=== PATIENT | male | born 1990 | race Caucasian/White ===

== ENCOUNTER 2024-07-15 01:01 | Emergency (ER) | payer OTHER ==
[~2024-07-15] VITALS: Ht 175.3 cm; Wt 178.0 kg
[2024-07-15] MEDS ORDERED: BUSPIRONE HCL30 MG PO (01:14)
[2024-07-15] MEDS ORDERED: SERTRALINE HCL100 MG PO (01:15)
[2024-07-15] MEDS ORDERED: ABILIFY30 MG PO (01:16)
[2024-07-15] MEDS ORDERED: PALIPERIDONE ER6 MG PO (01:17)
[2024-07-15] MEDS ORDERED: BENADRYL A12.5 MG/5 PO (01:18)
[2024-07-15] MEDS ORDERED: COL-RITE100 MG PO (01:19)
[2024-07-15] MEDS ORDERED: FAMOTIDINE20 MG PO (01:19)
[2024-07-15] MEDS ORDERED: LORAZEPAM0.5 MG PO (01:19)
[2024-07-15] MEDS ORDERED: OMEPRAZOLE20 MG PO (01:20)
[2024-07-15 01:42] LABS: BASOPHILS 0.6 % (0-2); EOSINOPHILS 3.1 % (0-6); HEMATOCRIT 43.7 % (35.0-50.0); HEMOGLOBIN 15.2 g/dL (12.0-18.0); LYMPHOCYTES 25.8 % (24-44); MCH 32.3 (27-36); MCHC 34.8 g/dl (30-36); MCV 92.7 fl (81-99); MONOCYTES 9.9 % (0-12); NEUTROPHILS 60.6 % (39-80); PLATELET COUNT 220 K/uL (140-440); RBC 4.72 M/ul (4.3-5.7); RDW 13.2 (10.5-15.0)
[2024-07-15] MEDS ORDERED: ondansetron HCL 4 MG/2 ML VIAL IV ONE (01:45)
[2024-07-15 01:51] LABS: ALBUMIN 3.6 g/dL (3.4-5.0); ALBUMIN/GLOBULIN RATIO 0.97 (1.1-2.4); ANION GAP 10.9 (7-21); BILIRUBIN, TOTAL 0.2 ng/dL (0.2-1.0); BUN/CREATININE RATIO 14.16 (6.0-28.6); CALCIUM 9.5 mg/dL (8.5-10.1); CREATININE, SERUM 1.2 mg/dL (0.70-1.30); MAGNESIUM 1.8 mg/dL (1.8-2.4); POTASSIUM 3.9 mmol/L (3.5-5.1); PROTEIN, TOTAL 7.3 g/dL (6.4-8.2)
[2024-07-15] MEDS ORDERED: KETOROLAC TROMETHAMINE 30 MG/ML VIAL IV ONE (02:00)
[2024-07-15] MEDS ORDERED: MORPHINE SULFATE 4 MG/ML VIAL IV ONE (03:00)
[2024-07-15 03:44] LABS: BILIRUBIN, URINE NEGATIVE (negative); BLOOD/HGB, URINE NEGATIVE (Negative); KETONE, URINE NEGATIVE (Negative); LEUK ESTERASE, URINE NEGATIVE (negative); NITRITE, URINE NEGATIVE (negative); PH, URINE 5.5 (5-7)
[2024-07-15 04:27] VITALS: BP 108/63
== END 2024-07-15 04:29 | disposition other institution, planned readmission (95) ==
LOC: ED 01:01
PROVIDERS: Internal Medicine
DX: R10.32 Left lower quadrant pain (principal); K42.9 Umbilical hernia without obstruction or gangrene; Z79.899 Other long term (current) drug therapy
CPT/HCPCS: 36415; 74177; 80053; 81003; 83690; 83735; 85025; 96375; 99284-25; J1885; J2270; J2405; Q9967

== ENCOUNTER 2024-10-23 02:53 | Day surgery (SDC) | payer OTHER ==
[~2024-10-23] VITALS: Ht 175.3 cm; Wt 149.7 kg
[~2024-10-23 02:53] MED LIST: ABILIFY30 MG PO; BENADRYL A12.5 MG/5 PO; BUSPIRONE HCL30 MG PO; COL-RITE100 MG PO; FAMOTIDINE20 MG PO; LORAZEPAM0.5 MG PO; OMEPRAZOLE20 MG PO; PALIPERIDONE ER6 MG PO; SERTRALINE HCL100 MG PO
[2024-10-23] MEDS ORDERED: LIDOCAINE & ANTACID 35 ML BTL PO ONE (03:15)
[2024-10-23] MEDS ORDERED: CEFEPIME HCL/D5W 2 GM/100 ML PIGGYBACK IV ONE (03:30)
[2024-10-23] MEDS ORDERED: ondansetron HCL 4 MG/2 ML VIAL IV ONE (03:30)
[2024-10-23] MEDS ORDERED: MORPHINE SULFATE 4 MG/ML VIAL IV ONE (03:30)
[2024-10-23] MEDS ORDERED: LACTATED RINGER'S 1,000 ML IV ONE (03:30)
[2024-10-23] MEDS ORDERED: metroNIDAZOLE/SODIUM CHLORIDE 500 MG/100 ML PIGGYBACK IV ONE (03:30)
[2024-10-23] MEDS ORDERED: FAMOTIDINE 20 MG/ 2 ML VIAL IV ONE (03:30)
[2024-10-23 03:45] LABS: HEMOGLOBIN 15.5 g/dL (12.0-18.0); MCH 31.6 (27-36); MCV 92.8 fl (81-99); RBC 4.92 M/ul (4.3-5.7)
[2024-10-23 03:48] LABS: BASOPHILS 0.6 % (0-2); EOSINOPHILS 3.2 % (0-6); HEMATOCRIT 45.6 % (35.0-50.0); MCHC 34.1 g/dl (30-36); MONOCYTES 8.9 % (0-12); NEUTROPHILS 74.3 % (39-80); PLATELET COUNT 239 K/uL (140-440); RDW 12.6 (10.5-15.0)
[2024-10-23 03:59] LABS: ALBUMIN 3.8 g/dL (3.4-5.0); ALBUMIN/GLOBULIN RATIO 1.03 (1.1-2.4); ANION GAP 14.2 (7-21); BILIRUBIN, TOTAL 0.3 ng/dL (0.2-1.0); BUN/CREATININE RATIO 10.71 (6.0-28.6); CALCIUM 9.1 mg/dL (8.5-10.1); CREATININE, SERUM 1.12 mg/dL (0.70-1.30); POTASSIUM 4.2 mmol/L (3.5-5.1); PROTEIN, TOTAL 7.5 g/dL (6.4-8.2)
[2024-10-23 04:24] LABS: ABO A; ANTIBODY SCREEN NEGATIVE; RH POSITIVE
[2024-10-23] MEDS ORDERED: SUCCINYLCHOLINE IN 0.9% NACL 200 MG/10 ML SYRINGE ONE (04:56)
[2024-10-23] MEDS ORDERED: propofoL 200 MG/20 ML VIAL ONE (04:57)
[2024-10-23] MEDS ORDERED: ondansetron HCL 4 MG/2 ML VIAL ONE (04:57)
[2024-10-23] MEDS ORDERED: DEXAMETHASONE SOD PHOS 4 MG/ML VIAL ONE (04:57)
[2024-10-23] MEDS ORDERED: FAMOTIDINE 20 MG/ 2 ML VIAL ONE (04:57)
[2024-10-23] MEDS ORDERED: METOCLOPRAMIDE HCL 10 MG/2 ML SDV ONE (04:57)
[2024-10-23] MEDS ORDERED: KETOROLAC TROMETHAMINE 30 MG/ML VIAL ONE (05:00)
[2024-10-23] MEDS ORDERED: GLYCOPYRROLATE 1 MG/5 ML MDV ONE (05:17)
--- NOTE | 2024-10-23 05:36 | NUR ---
10/23/24 0536 Sheets,Elisa 0571 PT ARRIVED TO PACU ON 10L VIA MASK, JAW THRUST USED WITH ORLAL AIRWAY TO MAINTAIN AIRWAY. INCREASED HR NOTED AND AIR POLLUTION AUDITOR AWARE. SECOND RN AT BEDSIDE. RESP EVEN AND UNLABORED.
[2024-10-23] MEDS ORDERED: droPERidol 5 MG/2 ML VIAL IV PRN (06:00)
[2024-10-23] MEDS ORDERED: PROCHLORPERAZINE EDISYLATE 10 MG/2 ML VIAL IV PRN (06:00)
[2024-10-23] MEDS ORDERED: KETOROLAC TROMETHAMINE 30 MG/ML VIAL IV PRN (06:00)
[2024-10-23] MEDS ORDERED: NALOXONE HCL 0.4 MG SYR IV PRN (06:00)
[2024-10-23] MEDS ORDERED: IBLOOD GLUCOSE TEST STRIP 1 EA TEST VI PRN (06:00)
[2024-10-23] MEDS ORDERED: ondansetron HCL 4 MG/2 ML VIAL IV PRN (06:00)
--- NOTE | 2024-10-23 06:10 | NUR ---
pt ARRIVED TO THE FLOOR VIA STRETCHER. VITAL SIGNS DONE. ASSESSMENT DONE. pt DENIES ANY OTHER NEEDS AT THIS TIME. CALL LIGHT WITHIN REACH. TONGUE BLEEDING SLOWLY DUE TO pt BITING IT COMING OUT OF SURGERY. NO CONCERNS AT THIS TIME.
[2024-10-23 06:18] VITALS: BP 113/68
[2024-10-23 07:30] VITALS: BP 147/97
--- NOTE | 2024-10-23 07:43 | NUR ---
REPORT BY PRIMARY RN - CAROLE CALLED TO [facility]. PT LEFT IN WHEELCHAIR WITH [facility] STAFF.
--- NOTE | 2024-10-23 08:38 | OR ---
[facility] [address] [place], [place] [address] Signed DATE OF OPERATION: 10/23/2024 SURGEON: Jeovany Farah MD PREOPERATIVE DIAGNOSIS: Gastric foreign body (razor blade). POSTOPERATIVE DIAGNOSIS: Gastric foreign body (razor blade). PROCEDURE: Esophagogastroduodenoscopy with removal of gastric foreign body. ESTIMATED BLOOD LOSS: None. INDICATIONS FOR THE PROCEDURE: Dwayne is a 34-year-old obese, schizophrenic gentleman [facility] In around [facility], he had swallowed a foreign body and had to have a midline laparotomy when it perforated his intestine. He often has abdominal complaints. We can see in June, he had a CT scan in our local emergency room for abdominal complaints that was unremarkable. He decided tonight to swallow the top of a razor blade when he broke it off the handle. This was about 30 minutes prior to admission to the ER. I came to see him in the ER. I had reviewed his records. I spoke with Dwayne with respect to the above. He understands we need to take him for upper endoscopy to remove the foreign body. He recalls having that done before. There is risk including, but not limited to gas bloating, crampy abdominal pain, bleeding, perforation requiring surgery, and missed diagnosis. He had expressed understanding and wished to proceed. DESCRIPTION OF PROCEDURE: Dwayne was taken into our endoscopy suite, placed in the supine semi-recumbent position. He was placed under general endotracheal tube anesthesia. The ER doctor had given him cefepime and Flagyl. A bite block was utilized. The adult gastroscope was introduced and advanced under direct visualization of camera without difficulty. We went past the razor blade at the GE junction and then out into the stomach. The entire stomach was unremarkable. Upon retroflexion of scope, we could see his razor blade next to the cardia. He looks like he has a small hiatal hernia. We tried to get the razor blade from below with our snare that was unsuccessful. It is a little larger razor blade that we normally see. We therefore straightened out the scope. As we came down through the Electronically Signed By: JEOVANY FARAH MD 10/23/24 0838 PATIENT NAME: DWAYNE VASQUEZ OPERATIVE REPORT DATE OF : [birth year] REPORT #: [id number] PHYSICIAN: JEOVANY FARAH MD PCP: [facility] REPORT IS CONFIDENTIAL AND NOT TO BE RELEASED WITHOUT AUTHORIZATION [facility] [address] [place], [place] [address] Signed GE junction, we advanced our wire out, passed into the razor blade, brought it back and captured the razor blade with our snare. We then carefully and gently under direct visualization brought the razor back through the GE junction, through the esophagus and then we deflated the balloon on ET tube and did a jaw thrust and brought it out up through the upper esophageal sphincter and out through his mouth and passed it off to our nurse. After this, we passed the scope back down the esophagus and out in the stomach. Again, the entire stomach was unremarkable. The GE junction was unremarkable. He probably has just a small hiatal hernia. We saw no damage to the GE junction or the entire esophagus or upper esophageal sphincter. There was no damage around the posterior oropharynx or his arytenoids. After this, the gastroscope was removed. He was awakened from his anesthesia, extubated in the endoscopy suite and taken into our recovery room in stable condition. Jeovany Farah MD ALB/MODL /[id number] cc: Jeovany Farah MD Patient Chart [facility] Copies: JEOVANY FARAH MD ~ Electronically Signed By: JEOVANY FARAH MD 10/23/24 0838 PATIENT NAME: DWAYNE VASQUEZ ANGELICA OPERATIVE REPORT DATE OF : [birth year] REPORT #: [id number] PHYSICIAN: JEOVANY FARAH MD PCP: [facility] REPORT IS CONFIDENTIAL AND NOT TO BE RELEASED WITHOUT AUTHORIZATION
--- NOTE | 2024-10-23 08:38 | CONS ---
[facility] [address] [place], [place] [address] Signed DATE OF CONSULTATION: 10/23/2024 CHIEF COMPLAINT: Gastric foreign body. HISTORY OF PRESENT ILLNESS: Dwayne is a 34-year-old obese gentleman [facility]. He happens to have schizophrenia. He says he hears voices. Apparently, he has been complaining about abdominal pain. We see a CT scan from June. He decided he would swallow razor blade. He has done this before. He said at some point the razor blade his stomach and he had to have surgery through a long midline laparotomy. Here, in the emergency room, it looks like on the abdominal x-ray that the razor blade is still in the stomach. I have been asked to see him here in the emergency room as a local general surgeon. PAST MEDICAL HISTORY: Obesity, schizophrenia, anxiety, depression, and gastroesophageal reflux disease. PAST SURGICAL HISTORY: Includes laparotomy to remove the intestinal foreign body and EGD. SOCIAL HISTORY: He is from our [facility]. FAMILY HISTORY: None. REVIEW OF SYSTEMS: He had 10 systems reviewed. He told me about his schizophrenia. ALLERGIES: None. MEDICATIONS: Buspirone, sertraline, Abilify, paliperidone, Benadryl, docusate, Pepcid, lorazepam, and omeprazole. PHYSICAL EXAMINATION: VITAL SIGNS: His blood pressure is 142/86, his heart rate is 96, respiratory rate 18, and his temperature is 97.8. He is 97% on room air. He is 5 feet 9 inches tall, 149 kg with a body mass index of 48. GENERAL: Dwayne is a 34-year-old obese gentleman, lying supine, semi-recumbent in his ER bed. He is with his two officers. He is in no acute distress. He has no increased Electronically Signed By: JEOVANY FARAH MD 10/23/24 0838 PATIENT NAME: DWAYNE VASQUEZ CONSULTATION DATE OF : [birth year] REPORT #: [id number] PHYSICIAN: JEOVANY FARAH MD [facility] AND NOT TO BE RELEASED WITHOUT AUTHORIZATION [facility] [address] [place] [address] Signed work of breathing. He talks in full sentences. LUNGS: Clear to auscultation bilaterally. HEART: Regular rate and rhythm without murmurs. ABDOMEN: Obese, nontender with a long midline scar. LABORATORY DATA: His white blood count 6.9, hemoglobin 15, neutrophils 74. His basic metabolic panel is pending. RADIOGRAPHIC STUDIES: Chest x-ray is unremarkable. The abdominal x-ray shows this 2.1 x 0.4 cm metallic foreign body in the left upper quadrant, what appears to be the stomach. ASSESSMENT AND PLAN: Dwayne is a 34-year-old obese gentleman with schizophrenia from our [facility] [place]. He has decided to swallow one of the razor blades. I explained to Dwayne, we are going to need to take him down the endoscopy suite under general anesthetic, and we will see if we can get that removed for him without laparotomy. If we cannot remove it, they can often pass these razor blades in a few days. He is very familiar with upper endoscopy. There is risk including, but not limited to gas bloating, crampy abdominal pain, bleeding, perforation requiring surgery, and missed diagnosis. He has expressed understanding, would like to proceed. Jeovany Farah MD ALB/MODL /[id number] cc: Jeovany Farah MD Patient Chart [facility] Electronically Signed By: JEOVANY FARAH MD 10/23/24 0838 PATIENT NAME: DWAYNE VASQUEZ ANGELICA CONSULTATION DATE OF : [birth year] REPORT #: [id number] PHYSICIAN: JEOVANY FARAH MD [facility] IS CONFIDENTIAL AND NOT TO BE RELEASED WITHOUT AUTHORIZATION [facility] [address] [place] [id number] Signed Copies: JEOVANY FARAH MD ~ Electronically Signed By: JEOVANY FARAH MD 10/23/24 0838 PATIENT NAME: CHRISTINADWAYNE DOMINGUEZ CONSULTATION DATE OF : [birth year] REPORT #: [id number] PHYSICIAN: JEOVANY FARAH MD PCP: [facility] REPORT IS CONFIDENTIAL AND NOT TO BE RELEASED WITHOUT AUTHORIZATION
--- NOTE | 2024-10-23 08:38 | OR ---
[facility] [address] [place], [place] [address] Signed DATE OF OPERATION: 10/23/2024 SURGEON: Jeovany Farah MD PREOPERATIVE DIAGNOSIS: Gastric foreign body (razor blade). POSTOPERATIVE DIAGNOSIS: Gastric foreign body (razor blade). PROCEDURE: Esophagogastroduodenoscopy with removal of gastric foreign body. ESTIMATED BLOOD LOSS: None. INDICATIONS: Dwayne is a 34-year-old obese gentleman with schizophrenia [facility]. He has a history of abdominal complaints. Around 2016, he actually did the same thing and had to have a foreign body removed via a laparotomy midline incision. He is now at our [facility] here in [place], [place]. I see a CT scan from our ER doctor back in June 2024 for abdominal complaints. I reviewed the CT scan and it was unremarkable. He decided about 30 minutes prior to admission to swallow the head off a razor. Therefore, [facility] brought him to our local emergency room. I was asked to see him in the emergency room. PAST MEDICAL HISTORY: Obesity, schizophrenia, anxiety, depression, and gastroesophageal reflux disease. PAST SURGICAL HISTORY: Includes his midline laparotomy and removal of foreign body and EGD. SOCIAL HISTORY: From our [facility]. FAMILY HISTORY: None. REVIEW OF SYSTEMS: Electronically Signed By: JEOVANY FARAH MD 10/23/24 0838 PATIENT NAME: DWAYNE VASQUEZ ANGELICA OPERATIVE REPORT DATE OF : [birth year] REPORT #: [id number] PHYSICIAN: JEOVANY FARAH MD PCP: [facility] REPORT IS CONFIDENTIAL AND NOT TO BE RELEASED WITHOUT AUTHORIZATION [facility] [address] [place], [place] [address] Signed He had 10 systems reviewed and he told me about his schizophrenia. ALLERGIES: None. MEDICATIONS: Buspirone, sertraline, Abilify, paliperidone, Benadryl, docusate, Pepcid, lorazepam, and omeprazole. PHYSICAL EXAMINATION: VITAL SIGNS: His blood pressure is 142/86, heart rate 96, respiratory rate 18, and temperature is 97.8. He is 97% on room air. He is 5 feet 9 inches tall, 149 kg with a body mass index of 48. GENERAL: Dwayne is a 34-year-old obese gentleman, lying supine, semi-recumbent in his ER bed. I had gone in to meet with him Dictation Ends Here MD LISA Panchal/MEKHIL /[id number] Copies: ~ Electronically Signed By: JEOVANY FARAH MD 10/23/24 0838 PATIENT NAME: DWAYNE VASQUEZ OPERATIVE REPORT DATE OF : [birth year] REPORT #: [id number] PHYSICIAN: JEOVANY FARAH MD PCP: [facility] REPORT IS CONFIDENTIAL AND NOT TO BE RELEASED WITHOUT AUTHORIZATION
[2024-10-23] MEDS ORDERED: SEVOFLURANE 250 ML BTL INH ONE (15:08)
--- NOTE | 2024-10-29 16:45 | PATH ---
[facility] [address] [place], [place] [address] Signed SPECIMEN(S): A RAZOR HEAD SPECIMEN SOURCE: A. RAZOR HEAD CLINICAL HISTORY: Ingested razor head FINAL PATHOLOGIC DIAGNOSIS: Razor head, gross examination: - Three-bladed safety razor head, gross only. JVR:[facility] MICROSCOPIC EXAMINATION: Histologic sections of all submitted blocks are examined by light microscopy. These findings, together with the gross examination, support the pathologic diagnosis. GROSS DESCRIPTION: The specimen, labeled and designated "Rosibel Casanova, razor head," is received in formalin and consists of a 4.1 x 1.1 x 0.8 cm black metallic razor head with 3 blades. The razor head is intact with no significant amount of soft tissue present. The specimen is submitted for gross examination only. AA (under the direct supervision of a pathologist) The Gross Description was prepared using a voice recognition system. The report was reviewed for accuracy; however, sound-alike word errors, addition and/or deletions may occur. If there is any question about this report, please contact Client Services. PERFORMING LABORATORY: Technical component was performed by [facility], [address] [place] [id number] (CLIA# [id number]). Professional interpretation was performed by [facility], [address] [place] [id number] (CLIA#: [id number]). Diagnostician: Faustino Zambrano MD Pathologist Electronically Signed 10/29/2024 PATIENT NAME: DWAYNE CASANOVA PATHOLOGY DATE OF : [birth year] REPORT #: [id number] PHYSICIAN: [facility] PCP: [facility] REPORT IS CONFIDENTIAL AND NOT TO BE RELEASED WITHOUT AUTHORIZATION [address] [address] Signed Copies: ~ PATIENT NAME: DWAYNE CASANOVA PATHOLOGY DATE OF : [birth year] REPORT #: [id number] PHYSICIAN: KAMILAH PATHOLOGY PCP: [facility] REPORT IS CONFIDENTIAL AND NOT TO BE RELEASED WITHOUT AUTHORIZATION
== END 2024-10-23 07:30 | disposition home or self-care (01) ==
LOC: ED 02:53 → MS 04:33 → DS 04:33
PROVIDERS: Family Medicine; ATTEND Colon & Rectal Surgery
PROC: 0DC48ZZ Extirpation of Matter from Esophagogastric Junction, Via Natural or Artificial Opening Endoscopic (ICD-10-PCS; principal; 2024-10-23 03:59)
DX: T18.2XXA Foreign body in stomach, initial encounter (principal); F20.9 Schizophrenia, unspecified; K21.9 Gastro-esophageal reflux disease without esophagitis; E66.9 Obesity, unspecified; Z68.42 Body mass index [BMI] 45.0-49.9, adult; W44.H0XA Other sharp object unspecified, entering into or through a natural orifice, initial encounter
CPT/HCPCS: 00731; 36415; 71045; 74018; 80053; 85025; 86850; 86900; 86901; 96374; 96375; 99284-25; J0330; J0692; J1100; J1885; J2270; J2405; J2704; J2765; J7121